=== PATIENT | female | born 1955 | race Caucasian/White ===

== ENCOUNTER 2018-10-27 08:15 | Emergency (ER) | payer OTHER ==
--- NOTE | 2018-10-27 08:56 | RAD REPORT ---
EXAM DESCRIPTION: RAD - Chest Single View - 10/27/2018 8:51 am CLINICAL HISTORY: CHEST PAIN Chest pain. COMPARISON: CHEST PA AND LAT 2 VIEW dated 03/31/2012 FINDINGS: Portable technique limits examination quality. The lungs are grossly clear. The heart is normal in size. No displaced fractures. IMPRESSION: No acute intrathoracic process suspected.
[2018-10-27 09:07] LABS: Absolute Lymphocytes (CBC) 0.9 K/uL (0.7-4.9); Eosinophils % 1.8 % (0-4.4); Hematocrit 40.3 % (36.0-45.0); Lymphocytes % 19.8 % (15.3-44.8); MPV 9.1 fL (7.6-11.3); Monocytes % 10.6 % (3.3-12.3)
[2018-10-27 09:31] LABS: BUN Blood Urea Nitrogen 17 mg/dL (7-18); Bicarbonate 27 mmol/L (21-32); Glucose Level 91 mg/dL (74-106); NT PRO-BNP 80 pg/mL (<125); Potassium 4.5 mmol/L (3.5-5.1); Sodium Level 140 mmol/L (136-145); Troponin (Emerg Dept Use Only) < 0.02 ng/mL (0.0-0.045)
--- NOTE | 2018-10-27 10:09 | EDPHYS ---
Physician Documentation [facility] Name: Mamie Cabezas Age: 62 yrs Sex: Female : 1955 Arrival Date: 10/27/2018 Time: 08:18 Bed 5 Private MD: ED Physician Gaudencio Sainz HPI: 10/27 08:30 This 62 yrs old Female presents to ER via Unassigned with complaints of Chest rn Pain. 08:30 The patient or guardian reports chest pain that is located primarily in the anterior rn chest wall, left. 08:30 Onset: 3 day(s) ago. The pain does not radiate. Associated signs and symptoms: rn Pertinent positives: cough, Pertinent negatives: abdominal pain, diaphoresis, dizziness, headache, lightheadedness, nausea, near syncope, palpitations, recent travel, shortness of breath, syncope, vomiting. The chest pain is described as sharp, stabbing. Duration: The patient or guardian reports multiple episodes, that are intermittent. Modifying factors: The symptoms are alleviated by nothing. the symptoms are aggravated by cough, deep breath. 08:32 Severity of pain: At its worst the pain was mild in the emergency department the pain rn is unchanged. The patient has not experienced similar symptoms in the past. 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 No pain with exertion, no radiation/nausea/diaphoresis. . Historical: - Allergies: 08:37 No Known Allergies; hb - Home Meds: 08:37 None [Active]; hb - PMHx: 08:37 Hepatitis; hb - PSHx: 08:37 Breast Augmentation; hb - Immunization history:: Adult Immunizations up to date. - Family history:: not pertinent. - Social history:: Smoking status: Patient/guardian denies using tobacco. - Ebola Screening: : No symptoms or risks identified at this time. - Hospitalizations: : No recent hospitalization is reported. ROS: 08:32 Constitutional: Negative for fever, chills, and weight loss, Eyes: Negative for injury, rn pain, redness, and discharge, Neck: Negative for injury, pain, and swelling, Cardiovascular: Negative for palpitations, and edema, Respiratory: Negative for shortness of breath, wheezing Abdomen/GI: Negative for abdominal pain, nausea, vomiting, diarrhea, and constipation, Back: Negative for injury and pain, MS/Extremity: Negative for injury and deformity, Skin: Negative for injury, rash, and discoloration, Neuro: Negative for headache, weakness, numbness, tingling, and seizure. Exam: 08:32 Constitutional: This is a well developed, well nourished patient who is awake, alert, rn and in no acute distress. Head/Face: Normocephalic, atraumatic. Eyes: Pupils equal round and reactive to light, extra-ocular motions intact. Lids and lashes normal. Conjunctiva and sclera are non-icteric and not injected. Cornea within normal limits. Periorbital areas with no swelling, redness, or edema. ENT: MMM Neck: No JVD Chest/axilla: NO rash on chest wall, + left lateral healing ecchymosis, no crepitus or mobile segments, + tender under left breast and lateral chest wall along ribs. Cardiovascular: Regular rate and rhythm with a normal S1 and S2. No gallops, murmurs, or rubs. Normal PMI, no JVD. No pulse deficits. Respiratory: Lungs have equal breath sounds bilaterally, clear to auscultation and percussion. No rales, rhonchi or wheezes noted. No increased work of breathing, no retractions or nasal flaring. Abdomen/GI: soft, non-tender Skin: Warm, dry with normal turgor. Normal color with no rashes, no lesions, and no evidence of cellulitis. MS/ Extremity: Pulses equal, no cyanosis. Neurovascular intact. Full, normal range of motion. Equal circumference. Neuro: Awake and alert, GCS 15, oriented to person, place, time, and situation. Cranial nerves II-XII grossly intact. Motor strength 5/5 in all extremities. Sensory grossly intact. Cerebellar exam normal. Normal gait. 08:37 ECG was reviewed by the Attending Physician. rn Vital Signs: 08:34 BP 119 / 90; Pulse 68; Resp 16; Temp 98.2; Pulse Ox 100% on R/A; Weight 78.93 kg; hb Height 5 ft. 4 in. (162.56 cm); Pain 5/10; 09:30 BP 116 / 78; Pulse 65; Resp 15; Pulse Ox 100% on R/A; hb 08:34 Body Mass Index 29.87 (78.93 kg, 162.56 cm) hb MDM: 08:19 Patient medically screened. rn 10:07 Differential diagnosis: acute pericarditis, anxiety, coronary artery disease chest wall rn pain, costochondritis, esophagitis, gastritis, gastroesophageal reflux disease (GERD), pericarditis, pleurisy, pneumonia, pneumothorax, pulmonary embolus. Data reviewed: vital signs, nurses notes, lab test result(s), EKG, radiologic studies, plain films, and as a result, I will discharge patient. Counseling: I had a detailed discussion with the patient and/or guardian regarding: the historical points, exam findings, and any diagnostic results supporting the discharge/admit diagnosis, lab results, radiology results, the need for outpatient follow up, to return to the emergency department if symptoms worsen or persist or if there are any questions or concerns that arise at home. Special discussion: Based on the patient's history, exam, and Dx evaluation, there is no indication for emergent intervention or inpatient Tx. It is understood by the patient/guardian that if the Sx's persist or worsen they need to return immediately for re-evaluation. I discussed with the patient/guardian in detail that at this point there is no indication for admission to the hospital. It is understood, however, that if the symptoms persist or worsen the patient needs to return immediately for re-evaluation. ED course: Normal ECG, neg trop, normal vitals, neg w/u here, will dc home with pcp f/u, most likely chest wall strain or pleurisy given ecchymosis, and active/farm lifestyle. Recommend pcp f/u and return precautions. . 10/27 08:31 Order name: Basic Metabolic Panel; Complete Time: : rn 10/27 08:31 Order name: CBC with Diff; Complete Time: : rn 10/27 08:31 Order name: NT PRO-BNP; Complete Time: 09: rn 10/27 08:31 Order name: Troponin (emerg Dept Use Only); Complete Time: : rn 10/27 08:31 Order name: XRAY Chest (1 view); Complete Time: 09:03 rn 10/27 08:31 Order name: D-Dimer; Complete Time: : rn 10/27 08:31 Order name: EKG; Complete Time: rn 10/27 08:31 Order name: Cardiac monitoring; Complete Time: rn 10/27 08:31 Order name: EKG - Nurse/Tech; Complete Time: : rn 10/27 08:31 Order name: IV Saline Lock; Complete Time: rn 10/27 08:31 Order name: Labs collected and sent; Complete Time: rn 10/27 08:31 Order name: O2 Per Protocol; Complete Time: : rn 10/27 08:31 Order name: O2 Sat Monitoring; Complete Time: rn EC:37 Rate is 75 beats/min. Rhythm is regular. QRS [place] is Normal. TN interval is normal. QRS rn interval is normal. QT interval is normal. No Q waves. T waves are Normal. No ST changes noted. Clinical impression: Normal ECG. Interpreted by me. Reviewed by me. Administered Medications: No medications were administered Disposition: 10/27/18 10:09 Discharged to Home. Impression: Chest pain, unspecified. - Condition is Stable. - Discharge Instructions: Nonspecific Chest Pain, Chest Wall Pain. - Prescriptions for Tylenol- Codeine #3 300-30 mg Oral Tablet - take 1 tablet by ORAL route every 6 hours As needed; 20 tablet. - Medication Reconciliation Form, Thank You Letter, Antibiotic Education, Prescription Opioid Use form. - Follow up: Private Physician; When: As needed; Reason: Recheck today's complaints, Re-evaluation by your physician. - Problem is new. - Symptoms have improved. Signatures: Dispatcher [employer] EDFL Gaudencio Sainz MD MD rn Baxter, Heather, RN RN hb Corrections: (The following items were deleted from the chart) 10:18 10:09 10/27/2018 10:09 Discharged to Home. Impression: Chest pain, unspecified. hb Condition is Stable. Forms are Medication Reconciliation Form, Thank You Letter, Antibiotic Education, Prescription Opioid Use. Follow up: Private Physician; When: As needed; Reason: Recheck today's complaints, Re-evaluation by your physician. Problem is new. Symptoms have improved. rn
--- NOTE | 2018-10-27 10:09 | ER ---
Nurse's Notes [facility] Name: Mamie Cabezas Age: 62 yrs Sex: Female : 1955 Arrival Date: 10/27/2018 Time: 08:18 Bed 5 Private MD: Diagnosis: Chest pain, unspecified Presentation: 10/27 08:32 Presenting complaint: Left sided chest wall pain x 1 week. Pain is worse with hb movement/deep breathing. Denies cough/fever. Transition of care: patient was not received from another setting of care. Onset of symptoms is unknown. Risk Assessment: Do you want to hurt yourself or someone else? Patient reports no desire to harm self or others. Initial Sepsis Screen: Does the patient meet any 2 criteria? No. Patient's initial sepsis screen is negative. Does the patient have a suspected source of infection? No. Patient's initial sepsis screen is negative. Care prior to arrival: None. 08:32 Method Of Arrival: Ambulatory hb 08:32 Acuity: DURAN 3 hb Historical: - Allergies: 08:37 No Known Allergies; hb - Home Meds: 08:37 None [Active]; hb - PMHx: 08:37 Hepatitis; hb - PSHx: 08:37 Breast Augmentation; hb - Immunization history:: Adult Immunizations up to date. - Family history:: not pertinent. - Social history:: Smoking status: Patient/guardian denies using tobacco. - Ebola Screening: : No symptoms or risks identified at this time. - Hospitalizations: : No recent hospitalization is reported. Screenin:35 Abuse screen: Denies threats or abuse. Denies injuries from another. Nutritional hb screening: No deficits noted. Tuberculosis screening: No symptoms or risk factors identified. Fall Risk None identified. Assessment: 08:40 General: Appears in no apparent distress. Behavior is calm, cooperative. Pain: hb Complains of pain in chest Pain does not radiate. Pain began 1 WEEK AGO. Neuro: Level of Consciousness is awake, alert, obeys commands, Oriented to person, place, time, situation. Cardiovascular: Heart tones S1 S2 present Capillary refill < 3 seconds Patient's skin is warm and dry. Respiratory: Airway is patent Respiratory effort is even, unlabored, Respiratory pattern is regular, symmetrical, Breath sounds are clear bilaterally. GI: No signs and/or symptoms were reported involving the gastrointestinal system. : No signs and/or symptoms were reported regarding the genitourinary system. EENT: No signs and/or symptoms were reported regarding the EENT system. Derm: Skin is intact, is healthy with good turgor. Musculoskeletal: No signs and/or symptoms reported regarding the musculoskeletal system. 09:30 Reassessment: Patient appears in no apparent distress at this time. No changes from hb previously documented assessment. Patient and/or family updated on plan of care and expected duration. Pain level reassessed. Patient is alert, oriented x 3, equal unlabored respirations, skin warm/dry/pink. Vital Signs: 08:34 BP 119 / 90; Pulse 68; Resp 16; Temp 98.2; Pulse Ox 100% on R/A; Weight 78.93 kg; hb Height 5 ft. 4 in. (162.56 cm); Pain 5/10; 09:30 BP 116 / 78; Pulse 65; Resp 15; Pulse Ox 100% on R/A; hb 08:34 Body Mass Index 29.87 (78.93 kg, 162.56 cm) hb ED Course: 08:18 Patient arrived in ED. dl4 08:19 Gaudencio Sainz MD is Attending Physician. rn 08:31 Ghazal Moran, LEONARDA is Primary Nurse. hb 08:34 Triage completed. hb 08:35 Arm band placed on. hb 08:38 EKG done, by computed tomography technologist. reviewed by Gaudencio Sainz MD. at1 08:42 XRAY Chest (1 view) In Process Unspecified. EDMS 08:42 Patient maintains SpO2 saturation greater than 95% on room air. hb 08:44 X-ray completed. Portable x-ray completed in exam room. Patient tolerated procedure jb2 well. 08:47 Missed attempt(s): 20 gauge in right antecubital area. Bleeding controlled, band aid hb applied, catheter tip intact. 08:49 Inserted saline lock: 20 gauge in right wrist, using aseptic technique. Blood collected.hb 08:52 Patient has correct armband on for positive identification. Placed in gown. Bed in low hb position. Call light in reach. Side rails up X 1. night supervisor on. Pulse ox on. NIBP on. 10:16 No provider procedures requiring assistance completed. IV discontinued, intact, hb bleeding controlled, No redness/swelling at site. Pressure dressing applied. Administered Medications: No medications were administered Outcome: 10:09 Discharge ordered by . rn 10:16 Discharged to home ambulatory. 10:16 Condition: stable 10:16 Discharge instructions given to patient, Instructed on discharge instructions, follow up and referral plans. medication usage, Demonstrated understanding of instructions, follow-up care, medications, Prescriptions given X 1. 10:18 Patient left the ED. Signatures: Dispatcher [employer] EDMS Patel Espinal jb2 Gaudencio Sainz MD MD rn Gonzales, Amanda, grief counsellor EKG Tat1 Ghazal Moran RN RN Alessandro Vázquez dl4
--- NOTE | 2018-10-28 14:53 | EKG ---
Test Date: 2018-10-27 Test Time: 08:32:43 Major Case Detective: YANDEL MEASUREMENT RESULTS: Intervals: Rate: 75 DC: 130 QRSD: 76 QT: 378 QTc: 422 [place]: P: 37 DC: 130 QRS: 44 T: 44 INTERPRETIVE STATEMENTS: Normal sinus rhythm Normal ECG No previous ECG available for comparison Electronically Signed On 10-28-18 14:47:50 CDT by Kiran Quan
== END 2018-10-27 10:18 | disposition home or self-care (01) ==
LOC: ER 08:15
DX: R07.9 Chest pain, unspecified (principal); Z98.82 Breast implant status
CPT/HCPCS: 36415; 71045; 80048; 83880; 84484; 85025; 85379; 93005; 99285